=== PATIENT | male | born 1970 | race Caucasian/White ===

== ENCOUNTER 2020-06-04 09:15 | Outpatient (NON) | payer OTHER, SELFPAY ==
[2020-06-04 11:06] LABS: Influenza Control Positive
[2020-06-04 19:25] LABS: SARS-CoV-2 RNA PCR Negative
== END 2020-06-04 09:16 ==
LOC: ANHCOVIDDT 09:16
PROVIDERS: PCP Family Medicine; Visit Provider Family Medicine
DX: R05 Cough (principal); Z20.828 Contact with and (suspected) exposure to other viral communicable diseases
CPT/HCPCS: 87635; 87804; C9803; U0003

== ENCOUNTER → 2021-02-18 07:09 | Outpatient (CLI) | payer OTHER, SELFPAY ==
[2021-02-19 02:19] LABS: SARS-CoV-2 RNA PCR Positive
== END ==
PROVIDERS: PCP Family Medicine; Visit Provider Family Medicine
DX: U07.1 COVID-19 (principal); R05 Cough
CPT/HCPCS: C9803; U0003; U0005

== ENCOUNTER 2021-12-09 00:13 | Day surgery (SDC) | payer OTHER, SELFPAY ==
[2021-11-29 10:45] VITALS: BMI 33.8
[2021-12-09 07:26] VITALS: BP 128/84; PULSE 72; RESP 17; TEMP 36.7; O2SAT 99
[2021-12-09] MEDS: LACTATED RINGERS 1,000 ML 150 ML IV CONT (07:34)
--- NOTE | 2021-12-09 08:12 | P.PNAN_ITS ---
Anes - Initial Pre Proc Eval Procedure: Operation Date: 12/09/21 08:30 Proposed Procedures p Screening Colonoscopy - Haroon Barragan MD Date/Time: 12/09/21 08:12 Surgeon: Haroon Barragan MD Pre Op Diagnosis: neoplasm screening Patient Data Age: 51 Gender: M Height: 1.75 m Weight: 102.5 kg Last Vital Signs Temp 98.1 F 12/09/21 07:26 Pulse 72 12/09/21 07:26 Resp 17 12/09/21 07:26 BP 128/84 12/09/21 07:26 Pulse Ox 99 12/09/21 07:26 O2 Del Method Room Air 12/09/21 07:26 Allergies Allergy/AdvReac Type Severity Reaction Status Date / Time propoxyphene Allergy Unknown JAUNDICE Verified 12/09/21 07:24 Home Medications Medication Instructions Recorded Confirmed Type bupropion HCl 300 mg 24 hr tablet, 300 mg PO QAM #90 tabs 11/25/21 12/09/21 Rx extended release (Wellbutrin XL) multivit with minerals-iron 18 1 tablet PO BID 11/29/21 12/09/21 History mg-folic ac 400 mcg-vit K 25 mcg tablet (Adults Multivitamin) Patient hx anesthesia problems: none Family hx anesthesia problems: none Results Review: All pre-operative results and documents have been reviewed as part of the pre- operative evaluation. [facility] Past Medical History Medical History Current moderate episode of major depressive disorder without prior episode Hx of intestinal obstruction Hyperglycemia Surgical History Surgical History Appendicitis History of testicular cancer Family History Family History Sibling Bipolar 1 disorder Father Hypertension Mother Hypertension Social History Social History Smoking status: Never smoker Second hand tobacco smoke exposure: No Alcohol intake: current Drinks per week: 1 Alcohol use details: 12 drinks monthly Substance use: never Substance use type: does not use Living arrangements: with family Gender identity (if verbalized by the patient): Male Spiritual care concerns: No Agree to blood products: Yes Meet Prasad Final PreProcedure Day of Procedure 12/09/21 08:12 Patient weight: obese Heart: regular rate and rhythm Lungs: clear to auscultation Airway: Mallampati scale class II Neurological: alert and oriented Last oral intake: >/= 8 hours ASA classification: III Emergent: no Anesthetic plan: proceed Anesthesia type and monitoring: general GIVS and standard monitoring Results Review: All pre-operative results and documents have been reviewed as part of the pre- operative evaluation. Informed Consent: The patient's anesthetic plan and its attendant risks and benefits were discussed with the patient/family/POA. Questions were solicited and answers provided to the satisfaction of the patient/family/POA.
--- NOTE | 2021-12-09 08:18 | PM.HPGS ---
History of Present Illness History of Present Illness Consent: Risks, benefits, and alternatives have been discussed and questions answered. Patient agrees to proceed with procedure. Chief complaint: neoplasm screening Narrative: Kilo Mac is a 51 year old male here for first screening colonoscopy Review of Systems Constitutional: Constitutional: Denies headache(s) and Denies weakness Eyes: Eyes: Denies blurry vision ENT: Reports Normal hearing present, Denies headache(s) and Denies neck pain Cardiovascular: Cardiovascular: Denies chest pain and Denies dyspnea Respiratory: Respiratory: Denies dyspnea Gastrointestinal: Gastrointestinal: Reports no additional gastrointestinal complaints Genitourinary: Genitourinary: Denies dysuria Musculoskeletal: Musculoskeletal: Denies neck pain Integumentary/Breasts: Skin/Breast: Denies dry skin Neurologic: Reports Normal hearing present, Denies headache(s) and Denies weakness Psychiatric: Psychiatric: Denies anxiety Endocrine: Endocrine: Denies change in body appearance Hematologic/Lymphatic: Hematologic/Lymphatic: Denies easy bleeding Allergic/Immunologic: Allergic/Immunologic: Denies urticaria PMF Past Medical History Medical History Current moderate episode of major depressive disorder without prior episode Hx of intestinal obstruction Hyperglycemia Surgical History Surgical History Appendicitis History of testicular cancer Family History Family History Sibling Bipolar 1 disorder Father Hypertension Mother Hypertension Social History Social History Smoking status: Never smoker Second hand tobacco smoke exposure: No Alcohol intake: current Drinks per week: 1 Alcohol use details: 12 drinks monthly Substance use: never Substance use type: does not use Living arrangements: with family Gender identity (if verbalized by the patient): Male Spiritual care concerns: No Agree to blood products: Yes Meds Home Medications and Allergies Home Medications Medication Instructions Recorded Confirmed Type bupropion HCl 300 mg 24 hr tablet, 300 mg PO QAM #90 tabs 11/25/21 12/09/21 Rx extended release (Wellbutrin XL) multivit with minerals-iron 18 1 tablet PO BID 11/29/21 12/09/21 History mg-folic ac 400 mcg-vit K 25 mcg tablet (Adults Multivitamin) Allergies Allergy/AdvReac Type Severity Reaction Status Date / Time propoxyphene Allergy Unknown JAUNDICE Verified 12/09/21 07:24 Vital Signs Vital Signs - 24 hr 12/09/21 07:26 Temperature 98.1 F Pulse Rate 72 Respiratory Rate 17 Blood Pressure 128/84 Pulse Oximetry 99 Oxygen Delivery Room Air Exam Const: General: comfortable and no acute distress HENMT: General nose exam: Normal nares present Eyes: General: appearance normal, both eyes and all related structures Neck: Neck: no JVD Resp: Auscultation: clear to auscultation bilaterally Cardio: Rate: regular rate Rhythm: regular rhythm GI: Inspection: non-distended GI Palp: Yes Soft to palpation Skin: General skin exam: normal color Neuro: General: gait normal Speech: normal speech Extrem: General: normal to inspection Psych: Mental Status: mental status grossly normal Assessment and Plan Assessment and plan (1) Screening for colon cancer: Code(s): Z12.11 - Encounter for screening for malignant neoplasm of colon Status: Acute Assessment and Plan: colonoscopy
[2021-12-09 08:33] VITALS: BP 124/89; PULSE 71; RESP 19; O2SAT 97
[2021-12-09 08:43] VITALS: BP 118/82; PULSE 63; RESP 19; O2SAT 97
[2021-12-09 08:53] VITALS: BP 126/92; PULSE 61; RESP 18; O2SAT 99
== END 2021-12-09 09:00 | disposition home or self-care (01) ==
PROVIDERS: PCP Family Medicine; Visit Provider Internal Medicine Gastroenterology
PROC: 0DJD8ZZ Inspection of Lower Intestinal Tract, Via Natural or Artificial Opening Endoscopic (ICD-10-PCS; CPT 45378; principal; 2021-12-09 08:30)
DX: Z12.11 Encounter for screening for malignant neoplasm of colon (principal); F32.9 Major depressive disorder, single episode, unspecified; R73.9 Hyperglycemia, unspecified; Z85.47 Personal history of malignant neoplasm of testis; K64.8 Other hemorrhoids
CPT/HCPCS: 45378; J2704; J7120